=== PATIENT | male | born 1950 | race Caucasian/White ===

== ENCOUNTER 2017-02-03 12:20 | Observation (INO) | payer MEDICARE, OTHER ==
[~2017-02-03] VITALS: Ht 162.6 cm; Wt 54.2 kg
[~2017-02-03 12:20] MED LIST: CLAR500T PO; HUM100VI8 SQ; LISI20TA11 PO; LOVA20TA PO; METF-480 PO; METR500T14 PO; OMEP20CA16 PO
[2017-02-03] MEDS ORDERED: SOD CHLORIDE 0.9% 1,000 ML IV STA ×2 (12:38→13:17)
[2017-02-03] MEDS ORDERED: ONDANSETRON 4 MG INJ IV STA (12:38)
[2017-02-03 13:04] LABS: AADO2 Arterial 13.5 mmHg (7.0-24.0); Allen Test ACCEPTAB; Arterial Base Excess 6.8 mmol/L (-3.0-3); Arterial COHb 0.4 % (0.0-3.0); Arterial Fraction of Oxyhgb 95.6 % (93.0-99.0); Arterial HCO3 31.3 mmol/L (22.0-26.0); Arterial MetHb 0.4 % (0.0-1.5); Arterial Total Hemglobin 13.5 g/dl (12.0-18.0); MODE ROOM AIR
[2017-02-03 13:05] LABS: ADD SCAN DIFF NO
[2017-02-03 13:07] LABS: BASOPHILS % 0.4 % (0.0-2.0); EOSINOPHILS # 0.1 10^3/ul (0.0-0.5); EOSINOPHILS % 1.3 % (0.0-7.0); HEMATOCRIT 42.4 % (42.0-52.0); HEMOGLOBIN 13.7 g/dl (14.0-18.0); LYMPHOCYTES # 1.9 10^3/ul (0.8-2.9); LYMPHOCYTES % 18.5 % (15.0-51.0); MEAN CORPUSCULAR HEMOGLOBIN 27.5 pg (29.0-33.0); MEAN CORPUSCULAR HGB CONC 32.3 g/dl (32.0-37.0); MEAN CORPUSCULAR VOLUME 85.1 fl (82.0-101.0); MEAN PLATELET VOLUME 9.4 fl (7.4-10.4); MONOCYTE # 0.5 10^3/ul (0.3-0.9); MONOCYTES % 5.3 % (0.0-11.0); NEUTROPHIL # 7.6 10^3/ul (1.6-7.5); NEUTROPHILS % 74.1 % (39.0-77.0); PLATELET COUNT 225 10^3/UL (140-415); RED BLOOD COUNT 4.98 10^6/ul (4.70-6.10); RED CELL DISTRIBUTION WIDTH 14.1 % (11.5-14.5); WHITE BLOOD COUNT 10.2 10^3/ul (4.8-10.8)
[2017-02-03] MEDS ORDERED: morphine 4 MG/ML VIAL IV STA (13:17)
[2017-02-03] MEDS ORDERED: METOCLOPRAMIDE 10 MG INJ IV STA (13:17)
[2017-02-03] MEDS ORDERED: INSU200I SQ ×3 (13:19→13:20)
[2017-02-03] MEDS ORDERED: LISI10TA2 PO (13:19)
[2017-02-03] MEDS ORDERED: TAMS-14 PO (13:21)
[2017-02-03] MEDS ORDERED: LANT3I SC (13:21)
[2017-02-03] MEDS ORDERED: SITA100T8 PO (13:21)
[2017-02-03] MEDS ORDERED: ASPI-664 PO (13:21)
[2017-02-03] MEDS ORDERED: ATOR40TA68 PO (13:22)
[2017-02-03] MEDS ORDERED: NORT25CA PO (13:22)
[2017-02-03] MEDS ORDERED: METF1000 PO (13:22)
[2017-02-03] MEDS ORDERED: TRAM-40 PO (13:23)
[2017-02-03] MEDS ORDERED: ONDA4TAB8 PO (13:23)
[2017-02-03] MEDS ORDERED: OMEP20CA16 PO (13:23)
[2017-02-03] MEDS ORDERED: LORA10CA PO (13:24)
[2017-02-03] MEDS ORDERED: MULTI PO (13:24)
--- NOTE | 2017-02-03 13:24 | ERA ---
ER Documentation Chief Complaint Date/Time DATE: 02/03/17 TIME: 13:18 Chief Complaint Sent by PCP to R/O HUSAM HPI This is a very pleasant [place]an-speaking male, 66 years of age that presents to the emergency department after being seen and evaluated by his primary care physician at [facility]. The patient indicates for the past 3 days he has been having multiple episodes of nonbloody nonbilious emesis and persistent nausea. The patient has a history of prostate carcinoma diabetes type 2 taking both insulin and oral medications. [facility] indicated that the patient's blood sugars have been elevated between 3 and 400. The patient indicates he has diffuse myalgias but denies any chest pain and also denies any abdominal pain. He has had no fevers or shaking or chills. He has been unable to tolerate oral intake due to the nausea and vomiting. He denies any shortness of breath at rest or exertion. He denies any back pain ROS All systems reviewed and are negative except as per history of present illness. Medications Home Meds Reported Medications Multivitamins* (Theragran*) 1 Tab Tab, 1 TAB PO DAILY, TAB 02/03/17 Loratadine* (Claritin*) 10 Mg Capsule, 10 MG PO DAILY, CAP 02/03/17 Ondansetron Hcl* (Zofran*) 4 Mg Tablet, 4 MG PO Q8 Y for NAUSEA AND/OR VOMITING , TAB 02/03/17 Tramadol Hcl* (Ultram*) 50 Mg Tablet, 50 MG PO Q8 Y for PAIN, TAB 02/03/17 Omeprazole* (Omeprazole*) 20 Mg Capsule.dr, 20 MG PO DAILY, #30 CAP 02/03/17 Atorvastatin* (Atorvastatin*) 40 Mg Tablet, 40 MG PO QHS, #30 TAB 02/03/17 Metformin Hcl* (Metformin Hcl*) 1,000 Mg Tablet, 1000 MG PO WITH BREAKFAST DINNE , #30 TAB 02/03/17 Nortriptyline Hcl* (Nortriptyline Hcl*) 25 Mg Capsule, 25 MG PO HS, CAP 02/03/17 Tamsulosin Hcl* (Flomax*) 0.4 Mg Cap.er.24h, 0.4 MG PO HS, CAP 02/03/17 Aspirin (Low Dose Aspirin) 81 Mg Tablet.dr, 81 MG PO DAILY, #30 TAB 02/03/17 Sitagliptin* (Januvia*) 100 Mg Tablet, 100 MG PO DAILY, #30 TAB 02/03/17 Insulin Glargine* (Lantus*) 100 Unit/Ml Soln, 34 UNIT SC QHS, #1 VIAL 02/03/17 Insulin Lispro (Humalog Kwikpen) 200 Unit/1 Ml Insuln.pen, 7 UNIT SQ AC DINNER, EA 02/03/17 Insulin Lispro (Humalog Kwikpen) 200 Unit/1 Ml Insuln.pen, 8 UNIT SQ AC LUNCH, EA 02/03/17 Insulin Lispro (Humalog Kwikpen) 200 Unit/1 Ml Insuln.pen, 6 UNIT SQ AC BREAKFAST, EA 02/03/17 Lisinopril* (Lisinopril*) 10 Mg Tablet, 10 MG PO DAILY, #30 TAB 02/03/17 Discontinued Reported Medications Hum Insulin Nph/Reg Insulin Hm (Humulin 70-30 Vial) 100 Units/Ml Vial, 20 SQ HS 02/13/12 Hum Insulin Nph/Reg Insulin Hm (Humulin 70-30 Vial) 100 Units/Ml Vial, 30 SQ AM 02/13/12 Lisinopril* (Lisinopril*) 20 Mg Tablet, 20 MG PO DAILY 02/13/12 Lovastatin* (Lovastatin*) 20 Mg Tablet, 20 MG PO HS 02/13/12 Metronidazole* (Metronidazole*) 500 Mg Tablet, 500 MG PO BID 02/13/12 Clarithromycin* (Clarithromycin*) 500 Mg Tablet, 500 MG PO BID 02/13/12 Omeprazole* (Omeprazole*) 20 Mg Capsule.dr, 20 MG PO BID 02/13/12 Metformin* (Glucophage*) 850 Mg Tablet, 850 MG PO BID 02/13/12 Allergies Allergies: Coded Allergies: No Known Allergies (Verified Allergy, Mild, 02/03/17) PMhx/Soc History of Surgery: Yes Anesthesia Reaction: No Hx Neurological Disorder: No Hx Respiratory Disorders: No Hx Cardiac Disorders: Yes (HTN, HIGH CHOLESTEROL ) Hx Psychiatric Problems: No Hx Miscellaneous Medical Probl: Yes (DM ) Hx Alcohol Use: No Hx Substance Use: No Hx Tobacco Use: No Smoking Status: Never smoker Physical Exam Vitals Vital Signs Date Time Temp Pulse Resp B/P Pulse Ox O2 Delivery O2 Flow Rate FiO2 02/03/17 14:00 76 16 135/75 98 Room Air 02/03/17 12:21 98.4 115 18 125/78 97 Physical Exam Constitutional:Well-developed. Well-nourished. HEENT:Normocephalic. Atraumatic.Pupils were equal round reactive to light. Dry mucous membranes.No tonsillar exudates. Neck: No nuchal rigidity. No lymphadenopathy. No posterior cervical spine tenderness or step-offs. Respiratory: Not using accessory muscles of respiration.Lungs were clear to auscultation bilaterally. No rhonchi. No rales. No wheezing. Cardiovascular: Regular rate regular rhythm.No murmurs. No rubs were appreciated.S1, S2 normal. Distal pulses are palpable 2+ bilaterally. GI: Abdomen was soft. Nontender. Non Distended. No pulsatile abdominal masses or bruits. No rebound. No guarding. Bowel sounds were present and normal. Muscle skeletal: Full range of motion of both the upper and lower extremities bilaterally.Normal muscle tone.No assymetrical calf tenderness or swelling. Skin: No petechia, no purpura. No lesions on the palms or the soles of the feet. No maculopapular rash. NEURO: Patient was alert, awake, orientated x3.No facial droop. Gait observed and normal with no ataxia.Speech had regular rate and rhythm. No focal neurological deficits. Result Diagram: 02/03/17 1251 02/03/17 1251 Results 24 hrs Laboratory Tests Test 02/03/17 12:38 02/03/17 12:42 02/03/17 12:51 02/03/17 13:50 Blood Gas Specimen Source Blood arterial Arterial Blood Date Drawn 02/03/2017 12:50:43 PM Arterial Blood pH (Temp corrected) 7.471 Arterial Blood pCO2 (Temp correct) 43.9mmhg Arterial Blood pO2 (Temp corrected) 83.7mmHG Arterial Blood HCO3 31.3mmol/L Arterial Blood Base Excess 6.8mmol/L Arterial Blood Oxygen Saturation 96.4mmHG Arnaldo Test ACCEPTAB Arterial Blood Gas Puncture Site Right Radial Arterial Blood Carboxyhemoglobin 0.4% Arterial Blood Methemoglobin 0.4% Blood Gas A-a O2 Differential 13.5mmHg Oxyhemoglobin Percent 95.6% Total Hemoglobin 13.5g/dl Blood Gas Temperature 37.0C Blood Gas Modality ROOM AIR FiO2 21.0% Blood Gas Notified Whom DAQUAND Blood Gas Notified Time 02/03/2017 1:04:22 PM Bedside Glucose 167mg/dL White Blood Count 10.210^3/ul Red Blood Count 4.9810^6/ul Hemoglobin 13.7g/dl Hematocrit 42.4% Mean Corpuscular Volume 85.1fl Mean Corpuscular Hemoglobin 27.5pg Mean Corpuscular Hemoglobin Concent 32.3g/dl Red Cell Distribution Width 14.1% Platelet Count 02458^3/UL Mean Platelet Volume 9.4fl Neutrophils % 74.1% Lymphocytes % 18.5% Monocytes % 5.3% Eosinophils % 1.3% Basophils % 0.4% Nucleated Red Blood Cells % 0.0/100WBC Neutrophils # 7.610^3/ul Lymphocytes # 1.910^3/ul Monocytes # 0.510^3/ul Eosinophils # 0.110^3/ul Basophils # 0.010^3/ul Nucleated Red Blood Cells # 0.010^3/ul Prothrombin Time 12.5Sec Prothrombin Time Ratio 1.0 INR International Normalized Ratio 0.93 Activated Partial Thromboplast Time 26.2Sec Sodium Level 133mmol/L Potassium Level 3.6mmol/L Chloride Level 88mmol/L Carbon Dioxide Level 37mmol/L Anion Gap 12 Blood Urea Nitrogen 33mg/dl Creatinine 1.46mg/dl Glucose Level 178mg/dl Lactic Acid Level 1.5mmol/L Calcium Level 9.7mg/dl Phosphorus Level 4.1mg/dl Magnesium Level 2.2mg/dl Total Bilirubin 0.3mg/dl Direct Bilirubin 0.00mg/dl Indirect Bilirubin 0.3mg/dl Aspartate Amino Transf (AST/SGOT) 22IU/L Alanine Aminotransferase (ALT/SGPT) 35IU/L Alkaline Phosphatase 89IU/L Troponin I < 0.012ng/ml Total Protein 8.2g/dl Albumin 4.8g/dl Globulin 3.40g/dl Albumin/Globulin Ratio 1.41 Amylase Level 109U/L Lipase 52U/L Urine Color RONAL Urine Clarity CLOUDY Urine pH 6.0 Urine Specific [place] 1.021 Urine Ketones TRACEmg/dL Urine Nitrite POSITIVEmg/dL Urine Bilirubin NEGATIVEmg/dL Urine Urobilinogen NEGATIVEmg/dL Urine Leukocyte Esterase 2+Sridevi/ul Urine Microscopic RBC 4/HPF Urine Microscopic WBC > 182/HPF Urine Bacteria MODERATE/HPF Urine Mucus FEW/HPF Urine Hemoglobin NEGATIVEmg/dL Urine Glucose 1+mg/dL Urine Total Protein 2+mg/dl Test 02/03/17 14:50 Lactic Acid Level 0.8mmol/L Current Medications Medications (Trade) Dose Ordered Sig/Hector Route PRN Reason Start Time Stop Time Status Last Admin Dose Admin Sodium Chloride (NS) 1,000 ml @ 1,000 mls/hr Q1H STAT IV 02/03/17 12:38 02/03/17 13:37 DC 02/03/17 12:52 Ondansetron HCl 4 mg 4 mg ONCE STAT IV 02/03/17 12:38 02/03/17 12:41 DC 02/03/17 12:51 Sodium Chloride (NS) 1,000 ml @ 1,000 mls/hr Q1H STAT IV 02/03/17 13:17 02/03/17 14:16 DC 02/03/17 13:35 Morphine Sulfate (morphine) 4 mg ONCE STAT IV 02/03/17 13:17 02/03/17 13:19 DC 02/03/17 13:35 Metoclopramide HCl 10 mg 10 mg ONCE STAT IV 02/03/17 13:17 02/03/17 13:19 DC 02/03/17 13:34 Ciprofloxacin/ Dextrose (Cipro Ivpb) 200 ml @ 200 mls/hr ONCE ONCE IVPB 02/03/17 16:00 02/03/17 16:59 Procedures/MDM This patient presented to the emergency department with a known history of prostate carcinoma and multiple episodes of nausea and emesis. The patient was immediately placed on a monitoring engineer with continuous pulse oximetry. IV access was established by nursing staff. The patient was given antiemetics which included Zofran. In addition the patient had been complaining of diffuse myalgias which he states is common with his prostate carcinoma. Therefore he was given intravenous morphine followed by Zofran as an antiemetic. I obtained an arterial blood gas in order to rule out complications such as diabetic ketoacidosis. The patient was not acidotic and there is no evidence of diabetic ketoacidosis as the patient had mild elevation of his blood glucose at 178. 12 Lead EKG tracing ordered and reviewed by myself showed: Normal sinus rhythm of 88 bpm and no arrhythmia. WV interval normal. QRS duration widened at 136 ms with a right bundle branch No ST segment elevation No ST segment depression. No changes consistent with acute ischemia. The patient had significant urinary tract infection given that the patient has history of prostate carcinoma I did feel he required admission for IV antibiotics. Blood cultures and urine cultures were obtained and the patient was started on IV ciprofloxacin. He continued to feel nauseous and received IV fluids and antiemetics. He will be admitted to the hospitalist in serious condition with anticipated stay of greater than 2 midnights. Departure Diagnosis: Primary Impression: Urinary tract infection Qualified Code: N30.00 - Acute cystitis without hematuria Condition: Serious EDGAR RICO Feb 03, 2017 13:24
[2017-02-03 13:28] LABS: ALANINE AMINOTRANSFERASE 35 IU/L (13-69); ALBUMIN 4.8 g/dl (3.3-4.9); ALBUMIN/GLOBULIN RATIO 1.41; ALKALINE PHOSPHATASE 89 IU/L (42-121); AMYLASE 109 U/L (11-123); ANION GAP 12 (8-16); ASPARTATE AMINO TRANSFERASE 22 IU/L (15-46); BILIRUBIN,INDIRECT 0.3 mg/dl (0-1.1); BILIRUBIN,TOTAL 0.3 mg/dl (0.2-1.3); BLOOD UREA NITROGEN 33 mg/dl (7-20); CALCIUM 9.7 mg/dl (8.4-10.2); CARBON DIOXIDE 37 mmol/L (21-31); CHLORIDE 88 mmol/L (97-110); CREATININE 1.46 mg/dl (0.61-1.24); GLUCOSE 178 mg/dl (70-220); INR 0.93; MAGNESIUM 2.2 mg/dl (1.7-2.5); PHOSPHORUS 4.1 mg/dl (2.5-4.9); POTASSIUM 3.6 mmol/L (3.5-5.1); PROTIME 12.5 Sec (12.2-14.2); SODIUM 133 mmol/L (135-144); TOTAL PROTEIN 8.2 g/dl (6.1-8.1)
[2017-02-03 13:29] LABS: PARTIAL THROMBOPLASTIN TIME 26.2 Sec (25.0-35.0)
[2017-02-03 13:42] LABS: TROPONIN-I < 0.012 ng/ml (0.00-0.12)
--- NOTE | 2017-02-03 13:45 | RADRPT ---
PROCEDURE: Chest Radiograph. CLINICAL INDICATION: Chest pain TECHNIQUE: Single frontal chest radiograph. COMPARISON: Chest radiograph 02/13/2012 FINDINGS: The cardiomediastinal silhouette is within normal limits. No infiltrate or effusion is seen. Th e bones are intact. IMPRESSION: 1. Unremarkable chest radiograph. RPTAT: KK .Jaime Reyna MD, MD Date Time Electronically viewed and signed by .Jaime Reyna MD, on 02/03/2017 13:44 .B/
[2017-02-03 15:11] LABS: ADD UMIC YES; UR ASCORBIC ACID 40 mg/dL (NEGATIVE); UR BACTERIA MODERATE /HPF (NONE SEEN); UR BILIRUBIN (Dip) NEGATIVE (NEGATIVE); UR BLOOD (Dip) NEGATIVE (NEGATIVE); UR CLARITY CLOUDY (CLEAR); UR COLOR AMBER (YELLOW); UR GLUCOSE (Dip) 1+ mg/dL (NEGATIVE); UR KETONES (Dip) TRACE mg/dL (NEGATIVE); UR LEUKOCYTE ESTERASE (Dip) 2+ Leu/ul (NEGATIVE); UR MUCUS FEW /HPF (NONE SEEN); UR NITRITE (Dip) POSITIVE (NEGATIVE); UR RBC 4 /HPF (0-5); UR SPECIFIC GRAVITY (Dip) 1.021 (1.003-1.030); UR TOTAL PROTEIN (Dip) 2+ mg/dl (NEGATIVE); UR UROBILINOGEN (Dip) NEGATIVE (NEGATIVE)
[2017-02-03 16:00] VITALS: TEMP 97.8
[2017-02-03] MEDS ORDERED: CIPROFLOXACIN 400MG/D5W 200 ML IVPB ONE (16:00)
[2017-02-03] MEDS ORDERED: ONDANSETRON 4 MG INJ IV PRN ×2 (18:00→18:30)
[2017-02-03] MEDS ORDERED: traMADol 50 MG TAB PO PRN (18:00)
[2017-02-03] MEDS ORDERED: ONDANSETRON 4 MG TAB PO PRN ×2 (18:00→18:30)
[2017-02-03] MEDS ORDERED: CEFTRIAXONE 1 GM/50 ML (PMX) 50 ML IVPB ONE (18:00)
[2017-02-03] MEDS ORDERED: ACETAMINOPHEN 325 MG TAB PO PRN ×2 (18:00→18:30)
--- NOTE | 2017-02-03 18:02 | HP ---
Date/Time of Note Date/Time of Note DATE: 02/03/17 TIME: 17:58 Assessment/Plan VTE Prophylaxis VTE Prophylaxis Intervention: SCD's Assessment/Plan Assessment/Plan 66 yo M with prostate cancer here for dysuria, most likely etio UTI and possible ALIYAH 2/2 UTI Plan: empiric ceftriaxone pending further culture data ALIYAH: IVFs, urine lytes -hold acei Dm2: cont home insulin, cont asa, cont TCA allergies: cont loratadine DVT prophx diabetic diet HPI/ROS Admit Date/Time Admit Date/Time Hx of Present Illness 66 yo M with pmhx prostate ca not on chemo, DM2 with neuropathy, HTN, HL, allergies, presents with 3 days of dysuria. No back pain. No fevers, chills, nausea, vomiting. No hematuria. PMH/Family/Social Social History Smoking Status: Never smoker Exam/Review of Systems Vital Signs Vitals Vital Signs Date Time Temp Pulse Resp B/P Pulse Ox O2 Delivery O2 Flow Rate FiO2 02/03/17 16:00 97.8 78 16 152/81 98 Room Air Exam Exam nad, laying in bed mmm EOMI no mrg lungs clear abd soft no CVA tenderness bl no rashes no edema Cr 1.6, no leukocytosis, UA with WBCs and bacteria Labs Result Diagram: 02/03/17 1251 02/03/17 1251 Medications Medications Current Medications Ceftriaxone Sodium (Rocephin) 50 ml @ 100 mls/hr ONCE ONCE IVPB Last administered on 02/03/17t 17:47; Admin Dose 100 MLS/HR; Start 02/03/17 at 18:00 ; Stop 02/03/17 at 18:29 RAEANN CORNEJO MD Feb 03, 2017 18:02
[2017-02-03] MEDS ORDERED: NACL 0.9% 3 ML SYG IV SCH (18:30)
[2017-02-03] MEDS ORDERED: HYDROCODONE/APAP (5/325) TAB PO PRN (18:30)
[2017-02-03] MEDS ORDERED: GLUCAGON 1 MG INJ IM PRN (19:00)
[2017-02-03] MEDS ORDERED: GLUCOSE GEL 15 GRAM TUBE PO PRN ×2 (19:00)
[2017-02-03] MEDS ORDERED: GLUCOSE GEL 15 GRAM TUBE BUCCAL PRN (19:00)
[2017-02-03] MEDS ORDERED: DEXTROSE 50% 50 ML SYRINGE IV PRN ×2 (19:00)
[2017-02-03] MEDS: NORTRIPTYLINE 25 MG CAP PO SCH (20:44)
[2017-02-03] MEDS: INSULIN ASPART [NOVOLOG] 3 ML PEN SC SCH (21:00)
[2017-02-03 21:07] VITALS: Ht 162.6 cm; Wt 54.2 kg
[2017-02-03 21:32] VITALS: BP 180/79; RESP 18
[2017-02-03] MEDS: metFORMIN 500 MG TAB PO SCH (21:38)
[2017-02-03] MEDS: ATORVASTATIN 40 MG TAB PO SCH (21:38)
[2017-02-03] MEDS: TAMSULOSIN (SR) 0.4 MG CAP PO SCH (21:39)
[2017-02-03 21:40] VITALS: BP 138/99; PULSE 93; RESP 18
[2017-02-03] MEDS: SOD CHLORIDE 0.9% 1,000 ML IV SCH (21:43)
[2017-02-03] MEDS: INSULIN GLARGINE [LANtus] 3 ML PEN SC SCH (23:20)
[2017-02-04 02:00] VITALS: BP 107/55; RESP 18
[2017-02-04] MEDS: ACCU-CHEK XX SCH (02:00)
[2017-02-04] MEDS: SOD CHLORIDE 0.9% 1,000 ML IV SCH ×3 (06:15→17:15)
[2017-02-04 06:23] LABS: CALCIUM 7.8 mg/dl (8.4-10.2); CREATININE 0.96 mg/dl (0.61-1.24); POTASSIUM 3.9 mmol/L (3.5-5.1)
[2017-02-04] MEDS: INSULIN ASPART [NOVOLOG] 3 ML PEN SC SCH ×4 (08:00→20:42)
[2017-02-04] MEDS: LORATADINE 10 MG TAB PO SCH (08:32)
[2017-02-04] MEDS: metFORMIN 500 MG TAB PO SCH ×2 (08:32→17:16)
[2017-02-04] MEDS: MULTIVITAMINS THERAPEUTIC TAB PO SCH (08:33)
[2017-02-04] MEDS: ASPIRIN (EC) 81 MG TAB PO SCH (08:33)
[2017-02-04] MEDS: ENOXAPARIN 40 MG/0.4 ML SYG SC SCH (08:35)
--- NOTE | 2017-02-04 11:31 | PN ---
Date/Time of Note Date/Time of Note DATE: 02/04/17 TIME: 11:28 Assessment/Plan VTE Prophylaxis VTE Prophylaxis Intervention: LMWH Lines/Catheters IV C[facility]ter Type (from [facility]): Peripheral IV Urinary Cath still in place: No Assessment/Plan Chief Complaint/Hosp Course 1. Urinary tract infection. Urine analysis positive. Pending urine cultures. No evidence of septic shock. Continue empiric antibiotics. 2. Acute kidney injury. Etiology unclear. Most probably a combination of dehydration and use of nephrotoxic medications. The patient's MARIBETH inhibitors has been on hold. Renal function improving. Continue IV fluids. 3. Type 2 diabetes mellitus with hemoglobin A1c 7.8. Continue sliding scale insulin and Metformin (if renal function is improving). 4. Essential hypertension. Continue antihypertensives. 5. Prostatic hypertrophy. Continue tamsulosin. 6. Fluids, electrolytes, and nutrition. Carbohydrate controlled diet. Continue IV hydration. 7. DVT prophylaxis with subcutaneous Lovenox. 8. Gastrointestinal prophylaxis. H2 receptor blockers. 9. Plan. Continue IV hydration. Continue empiric antibiotics. Await final urine cultures. Case discussed with Dr. Aviles. Problems: Subjective 24 Hr Interval Summary Free Text/Dictation Complains of nausea. Complains of minimal abdominal pain. Denies any flank pain. Exam/Review of Systems Vital Signs Vitals Vital Signs Date Time Temp Pulse Resp B/P Pulse Ox O2 Delivery O2 Flow Rate FiO2 02/04/17 02:00 98.1 78 18 107/55 96 02/03/17 21:40 Room Air Intake and Output 02/03/17 02/03/17 02/04/17 15:00 23:00 07:00 Intake Total 1000 ml 1550 ml Output Total 650 ml Balance 1000 ml 900 ml Exam General: Adequately build 66 year-old male lying in bed in no apparent distress. HEENT: Normocephalic, atraumatic. Eyes: Anicteric sclerae, conjunctivae clear. ENT: Nasal septum midline, oral mucosa moist. Neck supple, no JVD noticed. Respiratory: Bilaterally clear breath sounds. No use of accessory muscles of respiration. No adventitious breath sounds. Cardiovascular: S1, S2 heard. No murmurs or gallops. Abdomen: Soft and nondistended. Bowel sounds positive in all 4 quadrants. Diffuse tenderness. Genitourinary: Deferred. Extremities: No cyanosis, no clubbing, no edema. Peripheral pulses palpable. Neurologic: Cranial nerves II through XII grossly intact. The patient is awake, alert, and oriented. Skin: Normal skin turgor. No skin rashes. Results Result Diagram: 02/03/17 1251 02/04/17 0452 Results 24 hrs Laboratory Tests Test 02/03/17 12:38 02/03/17 12:42 02/03/17 12:51 02/03/17 13:50 Blood Gas Specimen Source Blood arterial Arterial Blood Date Drawn 02/03/2017 12:50:43 PM Arterial Blood pH (Temp corrected) 7.471 H Arterial Blood pCO2 (Temp correct) 43.9 Arterial Blood pO2 (Temp corrected) 83.7 Arterial Blood HCO3 31.3 H Arterial Blood Base Excess 6.8 H Arterial Blood Oxygen Saturation 96.4 Arnaldo Test ACCEPTAB Arterial Blood Gas Puncture Site Right Radial Arterial Blood Carboxyhemoglobin 0.4 Arterial Blood Methemoglobin 0.4 Blood Gas A-a O2 Differential 13.5 Oxyhemoglobin Percent 95.6 Total Hemoglobin 13.5 Blood Gas Temperature 37.0 Blood Gas Modality ROOM AIR FiO2 21.0 Blood Gas Notified Whom JLD Blood Gas Notified Time 02/03/2017 1:04:22 PM Bedside Glucose 167 White Blood Count 10.2 Red Blood Count 4.98 Hemoglobin 13.7 L Hematocrit 42.4 Mean Corpuscular Volume 85.1 Mean Corpuscular Hemoglobin 27.5 L Mean Corpuscular Hemoglobin Concent 32.3 Red Cell Distribution Width 14.1 Platelet Count 225 Mean Platelet Volume 9.4 Neutrophils % 74.1 Lymphocytes % 18.5 Monocytes % 5.3 Eosinophils % 1.3 Basophils % 0.4 Nucleated Red Blood Cells % 0.0 Neutrophils # 7.6 H Lymphocytes # 1.9 Monocytes # 0.5 Eosinophils # 0.1 Basophils # 0.0 Nucleated Red Blood Cells # 0.0 Prothrombin Time 12.5 Prothrombin Time Ratio 1.0 INR International Normalized Ratio 0.93 Activated Partial Thromboplast Time 26.2 Sodium Level 133 L Potassium Level 3.6 Chloride Level 88 L Carbon Dioxide Level 37 H Anion Gap 12 Blood Urea Nitrogen 33 H Creatinine 1.46 H Glucose Level 178 Hemoglobin A1c 7.8 H Lactic Acid Level 1.5 Calcium Level 9.7 Phosphorus Level 4.1 Magnesium Level 2.2 Total Bilirubin 0.3 Direct Bilirubin 0.00 Indirect Bilirubin 0.3 Aspartate Amino Transf (AST/SGOT) 22 Alanine Aminotransferase (ALT/SGPT) 35 Alkaline Phosphatase 89 Troponin I < 0.012 Total Protein 8.2 H Albumin 4.8 Globulin 3.40 H Albumin/Globulin Ratio 1.41 Amylase Level 109 Lipase 52 Urine Color RONAL Urine Clarity CLOUDY A Urine pH 6.0 Urine Specific [place] 1.021 Urine Ketones TRACE A Urine Nitrite POSITIVE A Urine Bilirubin NEGATIVE Urine Urobilinogen NEGATIVE Urine Leukocyte Esterase 2+ H Urine Microscopic RBC 4 Urine Microscopic WBC > 182 H Urine Bacteria MODERATE Urine Mucus FEW A Urine Hemoglobin NEGATIVE Urine Random Creatinine 298.95 Urine Random Sodium 86 Urine Glucose 1+ H Urine Total Protein 2+ H Test 02/03/17 14:50 02/03/17 16:40 02/03/17 20:39 02/03/17 21:25 Lactic Acid Level 0.8 0.9 Bedside Glucose 83 112 Test 02/04/17 04:52 02/04/17 08:16 Sodium Level 138 Potassium Level 3.9 Chloride Level 99 # Carbon Dioxide Level 30 Anion Gap 13 Blood Urea Nitrogen 25 H Creatinine 0.96 Glucose Level 114 # Calcium Level 7.8 L Bedside Glucose 89 Medications Medications Current Medications Aspirin (Halfprin) 81 mg DAILY PO Last administered on 02/04/17 08:33; Admin Dose 81 MG; Start 02/04/17 at 09:00 Atorvastatin Calcium (Lipitor) 40 mg QHS PO Last administered on 02/03/17 21: 38; Admin Dose 40 MG; Start 02/03/17 at 21:00 Insulin Glargine (Lantus) 34 unit QHS SC Last administered on 02/03/17 23:20; Admin Dose 34 UNIT; Start 02/03/17 at 21:00 Loratadine (Claritin) 10 mg DAILY PO Last administered on 02/04/17 08:32; Admin Dose 10 MG; Start 02/04/17 at 09:00 Multivitamins Therapeutic (Theragran) 1 tab DAILY PO Last administered on 08:33; Admin Dose 1 TAB; Start 02/04/17 at 09:00 Nortriptyline HCl (Aventyl) 25 mg HS PO Last administered on 02/03/17 20:44; Admin Dose 25 MG; Start 02/03/17 at 21:00 Ondansetron HCl (Zofran Tab) 4 mg Q8H PRN PO NAUSEA AND/OR VOMITING; Start at 18:00 Tamsulosin HCl (Flomax) 0.4 mg HS PO Last administered on 02/03/17 21:39; Admin Dose 0.4 MG; Start 02/03/17 at 21:00 Tramadol HCl (Ultram) 50 mg Q8H PRN PO PAIN; Start 02/03/17 at 18:00 Diagnostic Test (Pha) 1 ea 1 ea 02 XX ; Start 02/04/17 at 02:00 Sodium Chloride (NS) 1,000 ml @ 125 mls/hr Q8H IV Last administered on 06:15; Admin Dose 125 MLS/HR; Start 02/03/17 at 18:01 Ondansetron HCl (Zofran Tab) 4 mg Q6H PRN PO NAUSEA AND/OR VOMITING; Start at 18:30 Ondansetron HCl (Zofran Inj) 4 mg Q6H PRN IV NAUSEA AND/OR VOMITING; Start at 18:30 Acetaminophen (Tylenol Tab) 650 mg Q6H PRN PO PAIN LEVEL 1-3 OR FEVER; Start at 18:30 Acetaminophen/ Hydrocodone Bitart ([place] (5/325)) 1 tab Q6H PRN PO MODERATE PAIN LEVEL 4-6 Last administered on 02/03/17 20:44; Admin Dose 1 TAB; Start at 18:30 Enoxaparin Sodium 40 mg 40 mg DAILY SC Last administered on 02/04/17 08:35; Admin Dose 40 MG; Start 02/04/17 at 09:00 Ceftriaxone Sodium (Rocephin) 50 ml @ 100 mls/hr Q24H IVPB ; Start 02/04/17 at 18:00 Miscellaneous Information 1 ea NOTE XX ; Start 02/03/17 at 19:00 Glucose (Glutose) 15 gm Q15M PRN PO DECREASED GLUCOSE; Start 02/03/17 at 19:00 Glucose (Glutose) 22.5 gm Q15M PRN PO DECREASED GLUCOSE; Start 02/03/17 at 19: 00 Dextrose (D50w Syringe) 25 ml Q15M PRN IV DECREASED GLUCOSE; Start 02/03/17 at 19:00 Dextrose (D50w Syringe) 50 ml Q15M PRN IV DECREASED GLUCOSE; Start 02/03/17 at 19:00 Glucagon (Glucagen) 1 mg Q15M PRN IM DECREASED GLUCOSE; Start 02/03/17 at 19:00 Glucose (Glutose) 15 gm Q15M PRN BUCCAL DECREASED GLUCOSE; Start 02/03/17 at 19 :00 NOEMY HOLCOMB NP Feb 04, 2017 11:31
[2017-02-04] MEDS: FAMOTIDINE 20 MG TAB PO SCH ×2 (11:50→22:14)
[2017-02-04 12:36] LABS: CHOL/HDL RATIO 4.1 RATIO
[2017-02-04] MEDS ORDERED: CEFTRIAXONE 1 GM/50 ML (PMX) 50 ML IVPB SCH (18:00)
[2017-02-04] MEDS: TAMSULOSIN (SR) 0.4 MG CAP PO SCH (20:37)
[2017-02-04] MEDS: NORTRIPTYLINE 25 MG CAP PO SCH (20:38)
[2017-02-04] MEDS: ATORVASTATIN 40 MG TAB PO SCH (20:38)
[2017-02-04 20:43] VITALS: BP 149/73; RESP 18
[2017-02-04] MEDS: INSULIN GLARGINE [LANtus] 3 ML PEN SC SCH (20:45)
[2017-02-05] MEDS: ACCU-CHEK XX SCH (02:00)
[2017-02-05 02:42] VITALS: BP 129/62; RESP 18
[2017-02-05] MEDS: SOD CHLORIDE 0.9% 1,000 ML IV SCH ×2 (02:55→10:01)
[2017-02-05 05:37] LABS: ADD SCAN DIFF NO
[2017-02-05 05:48] LABS: BASOPHILS % 0.7 % (0.0-2.0); EOSINOPHILS # 0.2 10^3/ul (0.0-0.5); EOSINOPHILS % 3.4 % (0.0-7.0); HEMATOCRIT 29.6 % (42.0-52.0); HEMOGLOBIN 9.6 g/dl (14.0-18.0); LYMPHOCYTES # 1.6 10^3/ul (0.8-2.9); LYMPHOCYTES % 35.7 % (15.0-51.0); MEAN CORPUSCULAR HEMOGLOBIN 27.7 pg (29.0-33.0); MEAN CORPUSCULAR HGB CONC 32.4 g/dl (32.0-37.0); MEAN CORPUSCULAR VOLUME 85.5 fl (82.0-101.0); MONOCYTE # 0.3 10^3/ul (0.3-0.9); MONOCYTES % 6.8 % (0.0-11.0); NEUTROPHIL # 2.3 10^3/ul (1.6-7.5); NEUTROPHILS % 53.2 % (39.0-77.0); PLATELET COUNT 146 10^3/UL (140-415); RED BLOOD COUNT 3.46 10^6/ul (4.70-6.10); RED CELL DISTRIBUTION WIDTH 13.7 % (11.5-14.5); WHITE BLOOD COUNT 4.4 10^3/ul (4.8-10.8)
[2017-02-05 05:54] LABS: CALCIUM 8.3 mg/dl (8.4-10.2); CREATININE 0.8 mg/dl (0.61-1.24); POTASSIUM 4.1 mmol/L (3.5-5.1)
[2017-02-05 05:58] LABS: MAGNESIUM 1.7 mg/dl (1.7-2.5)
[2017-02-05] MEDS: INSULIN ASPART [NOVOLOG] 3 ML PEN SC SCH ×2 (08:00→12:00)
[2017-02-05 08:13] VITALS: BP 134/70; RESP 20
[2017-02-05] MEDS: LORATADINE 10 MG TAB PO SCH (08:50)
[2017-02-05] MEDS: MULTIVITAMINS THERAPEUTIC TAB PO SCH (08:50)
[2017-02-05] MEDS: FAMOTIDINE 20 MG TAB PO SCH (08:50)
[2017-02-05] MEDS: metFORMIN 500 MG TAB PO SCH (08:50)
[2017-02-05] MEDS: ASPIRIN (EC) 81 MG TAB PO SCH (08:50)
[2017-02-05] MEDS: ENOXAPARIN 40 MG/0.4 ML SYG SC SCH (08:51)
--- NOTE | 2017-02-05 11:05 | PDOCDIS ---
Discharge Instructions DIAGNOSIS Discharge Diagnosis Urinary tract infection. CONDITION Patient Condition: Stable HOME CARE INSTRUCTIONS: Special Diet: CARBOHYDRATE CONTROLLED FOLLOW UP/APPOINTMENTS Follow-up Plan Bay Pickens MD Specialty: Internal Medicine Office Address: [address] [place], [place] [id number] Office OTHER ORDERS: Other Orders: 1. Resume home medications. Complete the course of antibiotics. 2. Follow a carbohydrate controlled diet. 3. Resume activities as tolerated. 4. Follow-up with your primary care physician 1 week. If you do not have a primary care physician, please call Dr. Bay Pickens's office. 5. Please go to the nearest emergency room if you continue to have persistent fevers, significant abdominal pain, persistent nausea and vomiting, or any other unusual signs/symptoms. NOEMY HOLCOMB NP Feb 05, 2017 11:05
[2017-02-05] MEDS ORDERED: CEPH500C PO (11:08)
--- NOTE | 2017-02-05 11:14 | DS ---
Date/Time of Note Date/Time of Note DATE: 02/05/17 TIME: 11:11 Discharge Summary Admission/Discharge Info Admit Date/Time Feb 03, 2017 at 17:39 Discharge Date/Time Discharge Diagnosis 1. Urinary tract infection. 2. Acute kidney injury. Resolved. 3. Type 2 diabetes mellitus with hemoglobin A1c 7.8. 4. Essential hypertension. 5. Prostatic hypertrophy. 6. Dyslipidemia. Patient Condition: Stable Procedures CXR IMPRESSION: 1. Unremarkable chest radiograph. Hx of Present Illness 66 yo M with pmhx prostate ca not on chemo, DM2 with neuropathy, HTN, HL, allergies, presents with 3 days of dysuria. No back pain. No fevers, chills, nausea, vomiting. No hematuria. Patient was noticed to have acute kidney injury. The patient also had positive urinalysis with positive nitrate and positive leukocyte esterase with urine microscopic WBC greater than 182. Provided the patient's history of present illness and the diagnostic findings, a clinical decision was made to admit the patient inpatient setting to have him further evaluated. Hospital Course The patient was admitted to inpatient medical surgical floor. The patient was started on empiric antibiotics. Pancultures were ordered. The patient's urine culture showed positive E. coli that was resistant to Bactrim and fluoroquinolones, but sensitive to cephalosporins. The patient had no evidence of any septic shock. Patient responded well to antibiotic therapy and IV hydration. Patient had some acute kidney injury upon presentation to the ER. This was resolved after holding his nephrotoxic medications and with IV hydration. Patient has underlying prostate hypertrophy. The patient was maintained on tamsulosin for the same. The patient has underlying type 2 diabetes mellitus. The patient was maintained on sliding scale insulin with well-controlled blood sugars. The patient had a hemoglobin A1c of 7.8. The patient has underlying dyslipidemia. He was maintained on statins for the same. The patient had a stable hospital course. The patient is stable enough to be discharged home on oral antibiotics to complete the course of antibiotics for his underlying urinary tract infection. Discharge Instructions 1. Resume home medications. Complete the course of antibiotics. 2. Follow a carbohydrate controlled diet. 3. Resume activities as tolerated. 4. Follow-up with your primary care physician 1 week. If you do not have a primary care physician, please call Dr. Bay Pickens's office. 5. Please go to the nearest emergency room if you continue to have persistent fevers, significant abdominal pain, persistent nausea and vomiting, or any other unusual signs/symptoms. The patient verbalized understanding of his discharge instructions. Case discussed with Dr. Aviles. Home Meds Active Scripts Cephalexin* (Cephalexin*) 500 Mg Capsule, 500 MG PO Q12H for 7 Days, #14 CAP Prov:NOEMY HOLCOMB [employer] 02/05/17 Reported Medications Multivitamins* (Theragran*) 1 Tab Tab, 1 TAB PO DAILY, TAB 02/03/17 Loratadine* (Claritin*) 10 Mg Capsule, 10 MG PO DAILY, CAP 02/03/17 Ondansetron Hcl* (Zofran*) 4 Mg Tablet, 4 MG PO Q8 Y for NAUSEA AND/OR VOMITING , TAB 02/03/17 Tramadol Hcl* (Ultram*) 50 Mg Tablet, 50 MG PO Q8 Y for PAIN, TAB 02/03/17 Omeprazole* (Omeprazole*) 20 Mg Capsule.dr, 20 MG PO DAILY, #30 CAP 02/03/17 Atorvastatin* (Atorvastatin*) 40 Mg Tablet, 40 MG PO QHS, #30 TAB 02/03/17 Metformin Hcl* (Metformin Hcl*) 1,000 Mg Tablet, 1000 MG PO WITH BREAKFAST DINNE , #30 TAB 02/03/17 Nortriptyline Hcl* (Nortriptyline Hcl*) 25 Mg Capsule, 25 MG PO HS, CAP 02/03/17 Tamsulosin Hcl* (Flomax*) 0.4 Mg Cap.er.24h, 0.4 MG PO HS, CAP 02/03/17 Aspirin (Low Dose Aspirin) 81 Mg Tablet.dr, 81 MG PO DAILY, #30 TAB 02/03/17 Sitagliptin* (Januvia*) 100 Mg Tablet, 100 MG PO DAILY, #30 TAB 02/03/17 Insulin Glargine* (Lantus*) 100 Unit/Ml Soln, 34 UNIT SC QHS, #1 VIAL 02/03/17 Insulin Lispro (Humalog Kwikpen) 200 Unit/1 Ml Insuln.pen, 7 UNIT SQ AC DINNER, EA 02/03/17 Insulin Lispro (Humalog Kwikpen) 200 Unit/1 Ml Insuln.pen, 8 UNIT SQ AC LUNCH, EA 02/03/17 Insulin Lispro (Humalog Kwikpen) 200 Unit/1 Ml Insuln.pen, 6 UNIT SQ AC BREAKFAST, EA 02/03/17 Lisinopril* (Lisinopril*) 10 Mg Tablet, 10 MG PO DAILY, #30 TAB 02/03/17 Discontinued Reported Medications Hum Insulin Nph/Reg Insulin Hm (Humulin 70-30 Vial) 100 Units/Ml Vial, 20 SQ HS 02/13/12 Hum Insulin Nph/Reg Insulin Hm (Humulin 70-30 Vial) 100 Units/Ml Vial, 30 SQ AM 02/13/12 Lisinopril* (Lisinopril*) 20 Mg Tablet, 20 MG PO DAILY 02/13/12 Lovastatin* (Lovastatin*) 20 Mg Tablet, 20 MG PO HS 02/13/12 Metronidazole* (Metronidazole*) 500 Mg Tablet, 500 MG PO BID 02/13/12 Clarithromycin* (Clarithromycin*) 500 Mg Tablet, 500 MG PO BID 02/13/12 Omeprazole* (Omeprazole*) 20 Mg Capsule.dr 20 MG PO BID 02/13/12 Metformin* (Glucophage*) 850 Mg Tablet, 850 MG PO BID 02/13/12 Follow-up Plan Follow-up with your primary care physician in 1 week. Primary Care Provider Care Physician No Primary Time spent on discharge: > 30 minutes Pending Labs Name: DEBRA BILLS Age/Sex: 66/M Attend Dr: EILEEN BULLOCK Acct: [id number] MR# : [id number] : 1950 Location: [facility] 2246-A Admit: 02/03/17 Specimen: [id number] Status: Complete Rasheed: 02/03/17-1350 Rcvd: 02/03-1454 Source: [facility] LARA Sp Descrip: Procedure Result Microbiology URINE CULTURE Final Organism 1 ESCHERICHIA COLI COLONY COUNT >100,000 CFU/ml E COLI M.I.C. RX --------- --- AMIKACIN <=2 S AMPICILLIN >=32 R CEFAZOLIN S CEFOTAXIME S CIPROFLOXACIN >=4 R GENTAMICIN >=16 R LEVOFLOXACIN >=8 R NITROFURANTOIN <=16 S TOBRAMYCIN 8 I TRIMETHOPRIM/SULFAMETHOXAZOLE >=320 R Laboratory Tests Test 02/04/17 11:48 02/04/17 12:06 02/04/17 16:43 02/04/17 20:41 Bedside Glucose 99mg/dL (70-220) 91mg/dL (70-220) 120mg/dL (70-220) Triglycerides Level 99mg/dl (0-149) Cholesterol Level 137mg/dl (100-200) LDL Cholesterol, Calculated 84mg/dl HDL Cholesterol 33mg/dl (30-78) Cholesterol/HDL Ratio 4.1RATIO Vitamin D 1,25-Dihydroxy 37.1ng/ml (30-100) Test 02/05/17 04:38 02/05/17 08:38 White Blood Count 4.410^3/ul (4.8-10.8) Red Blood Count 3.4610^6/ul (4.70-6.10) Hemoglobin 9.6g/dl (14.0-18.0) Hematocrit 29.6% (42.0-52.0) Mean Corpuscular Volume 85.5fl (82.0-101.0) Mean Corpuscular Hemoglobin 27.7pg (29.0-33.0) Mean Corpuscular Hemoglobin Concent 32.4g/dl (32.0-37.0) Red Cell Distribution Width 13.7% (11.5-14.5) Platelet Count 32796^3/UL (140-415) Mean Platelet Volume 10.0fl (7.4-10.4) Neutrophils % 53.2% (39.0-77.0) Lymphocytes % 35.7% (15.0-51.0) Monocytes % 6.8% (0.0-11.0) Eosinophils % 3.4% (0.0-7.0) Basophils % 0.7% (0.0-2.0) Nucleated Red Blood Cells % 0.0/100WBC (0.0-0.0) Neutrophils # 2.310^3/ul (1.6-7.5) Lymphocytes # 1.610^3/ul (0.8-2.9) Monocytes # 0.310^3/ul (0.3-0.9) Eosinophils # 0.210^3/ul (0.0-0.5) Basophils # 0.010^3/ul (0.0-0.1) Nucleated Red Blood Cells # 0.010^3/ul (0.0-0.0) Sodium Level 141mmol/L (135-144) Potassium Level 4.1mmol/L (3.5-5.1) Chloride Level 105mmol/L (97-110) Carbon Dioxide Level 27mmol/L (21-31) Anion Gap 13 (8-16) Blood Urea Nitrogen 13mg/dl (7-20) Creatinine 0.80mg/dl (0.61-1.24) Glucose Level 78mg/dl (70-220) Calcium Level 8.3mg/dl (8.4-10.2) Phosphorus Level 3.0mg/dl (2.5-4.9) Magnesium Level 1.7mg/dl (1.7-2.5) Bedside Glucose 83mg/dL (70-220) NOEMY HOLCOMB NP Feb 05, 2017 11:14
[2017-02-06 17:55] LABS: PSA, FREE 1.1 ng/mL
== END 2017-02-05 14:14 | disposition home or self-care (01) ==
LOC: E/R 12:20 → PP2 17:39
PROVIDERS: ADMIT Family Medicine; ATTEND Family Medicine
DX: N39.0 Urinary tract infection, site not specified (principal); N17.9 Acute kidney failure, unspecified; I10 Essential (primary) hypertension; E11.9 Type 2 diabetes mellitus without complications; E78.00 Pure hypercholesterolemia, unspecified; Z79.4 Long term (current) use of insulin; Z79.82 Long term (current) use of aspirin; N40.0 Benign prostatic hyperplasia without lower urinary tract symptoms
CPT/HCPCS: 36415; 36600; 71010; 80048; 80053; 80061; 81001; 82150; 82306; 82652; 82803; 82962; 83036; 83605; 83690; 83735; 84100; 84153; 84154; 84155; 84300; 84484; 85025; 85610; 85730; 87040; 87086; 93005; 96361; 96374; 96375; 99285; G0378; J0696; J0744; J1650; J1815; J2270; J2405; J2765; J7030